=== PATIENT | male | born 1955 | race African-American/Black ===

== ENCOUNTER 2023-04-20 08:45 | Emergency (ER) | payer BC ==
[~2023-04-20] VITALS: Ht 185.4 cm; Wt 108.9 kg
[2023-04-20 08:52] VITALS: BP_SYST 163; PULSE 82; RESP 18; TEMP 97.8; O2SAT 97
[2023-04-20] MEDS ORDERED: BACITRACIN 1 GM OINT TP ONE (08:56)
[2023-04-20] MEDS ORDERED: DIPHTH,PERTUSS(ACELL),TET VAC 0.5 ML VIAL (Tdap) I.M. ONE (09:00)
[2023-04-20 09:12] VITALS: BP_SYST 163; PULSE 82; RESP 18; TEMP 97.8; O2SAT 97
== END 2023-04-20 09:10 | disposition home or self-care (01) ==
LOC: SED 08:45
DX: S00.01XA Abrasion of scalp, initial encounter (principal); Z79.899 Other long term (current) drug therapy; W26.8XXA Contact with other sharp object(s), not elsewhere classified, initial encounter; Y93.89 Activity, other specified; Y92.89 Other specified places as the place of occurrence of the external cause; Y99.8 Other external cause status
CPT/HCPCS: 90715; 99283